=== PATIENT | female | born 1950 | race African-American/Black ===

== ENCOUNTER 2019-09-27 16:31 | Emergency (ER) | payer MEDICARE, MEDICAID ==
[~2019-09-27] VITALS: Ht 160 cm; Wt 58.0 kg
[2019-09-27 16:47] VITALS: BP 107/78
== END 2019-09-27 19:33 | disposition left against medical advice (07) ==
LOC: ER 16:31
DX: Z53.21 Procedure and treatment not carried out due to patient leaving prior to being seen by health care provider (principal)

== ENCOUNTER 2020-07-18 18:15 | Emergency (ER) | payer MEDICARE, MEDICAID ==
[~2020-07-18] VITALS: Ht 165.1 cm; Wt 60.0 kg
[2020-07-18 18:17] VITALS: BP 121/77
[2020-07-18] MEDS ORDERED: IBUPROFEN 600MG TABLET PO STA (19:37)
[2020-07-18] MEDS ORDERED: ACETAMINOPHEN WITH CODEINE 300/30MG TABLET PO STA (19:46)
[2020-07-18] MEDS ORDERED: ACETAMINOPHEN 325MG TABLET PO STA (19:48)
== END 2020-07-18 21:27 | disposition home or self-care (01) ==
LOC: ER 18:15
DX: M25.551 Pain in right hip (principal); M79.604 Pain in right leg; J44.1 Chronic obstructive pulmonary disease with (acute) exacerbation; I10 Essential (primary) hypertension; Z88.1 Allergy status to other antibiotic agents
CPT/HCPCS: 71045; 73030; 73080; 73110; 73502; 73590; 99284

== ENCOUNTER 2020-12-12 16:08 | Emergency (ER) | payer MEDICARE, MEDICAID ==
[~2020-12-12] VITALS: Ht 157.5 cm; Wt 63.0 kg
[2020-12-12 16:46] VITALS: BP 120/95
[2020-12-12] MEDS ORDERED: MOBI7 MT (18:58)
[2020-12-12] MEDS ORDERED: ACETAMINOPHEN 325MG TABLET PO ONE (19:00)
== END 2020-12-12 19:10 | disposition home or self-care (01) ==
LOC: ER 16:51
DX: M16.11 Unilateral primary osteoarthritis, right hip (principal); I10 Essential (primary) hypertension; J44.1 Chronic obstructive pulmonary disease with (acute) exacerbation; J45.909 Unspecified asthma, uncomplicated; Z88.1 Allergy status to other antibiotic agents; Z98.890 Other specified postprocedural states; Z86.39 Personal history of other endocrine, nutritional and metabolic disease
CPT/HCPCS: 73700; 99285

== ENCOUNTER 2021-08-10 18:07 | Emergency (ER) | payer MEDICARE, MEDICAID ==
[~2021-08-10] VITALS: Ht 157.5 cm; Wt 59.0 kg
[~2021-08-10 18:07] MED LIST: MOBI7 MT
[2021-08-10 18:13] VITALS: BP 111/75
== END 2021-08-10 22:00 | disposition left against medical advice (07) ==
LOC: ER 18:07
DX: Z53.21 Procedure and treatment not carried out due to patient leaving prior to being seen by health care provider (principal)
CPT/HCPCS: 93005; 99283

== ENCOUNTER 2023-03-22 21:53 | Emergency (ER) | payer MEDICARE, MEDICAID ==
[~2023-03-22] VITALS: Ht 152.4 cm; Wt 52.1 kg
[2023-03-22 22:06] VITALS: O2SAT 99
[2023-03-23 00:37] LABS: CLARITY URINE TURBID (CLEAR); COLOR URINE ORANGE (YELLOW); KETONES URINE TRACE (NEGATIVE); LEUKOCYTE ESTERASE URINE 2+ (NEGATIVE); NITRITE URINE NEGATIVE (NEGATIVE); OCCULT BLOOD URINE 3+ (NEGATIVE); PROTEIN URINE 2+ (NEGATIVE); SPECIFIC GRAVITY URINE 1.043 (1.005-1.030)
[2023-03-23] MEDS ORDERED: CEFP200T13 MT (01:43)
[2023-03-23] MEDS ORDERED: LIDOCAINE HCL 1% 20ML VIAL (Pyxis) INJ INFIL ONE (01:45)
[2023-03-23] MEDS ORDERED: KETOROLAC 60MG/2ML VIAL IM ONE (01:45)
[2023-03-23] MEDS ORDERED: CEFTRIAXONE SODIUM 1 G/VIAL IM ONE (01:45)
[2023-03-23 02:21] VITALS: BP 156/92
[2023-03-23 02:22] VITALS: PULSE 68; RESP 16; TEMP 98.1
== END 2023-03-23 02:20 | disposition home or self-care (01) ==
LOC: ER 21:53
DX: N39.0 Urinary tract infection, site not specified (principal); I10 Essential (primary) hypertension; Z98.890 Other specified postprocedural states; Z90.49 Acquired absence of other specified parts of digestive tract; Z86.39 Personal history of other endocrine, nutritional and metabolic disease; Z88.0 Allergy status to penicillin
CPT/HCPCS: 99284; 81003; 81025; 96372; J0696; J1885; J3490

== ENCOUNTER → 2024-03-15 | Outpatient (CLI) | payer MEDICARE, MEDICAID ==
[~2024-03-15] MED LIST changes: +CEFP200T13 MT; +GADOTERATE MEGLUMINE 5 MMOL/10 ML VIAL IV ONE
== END | disposition home or self-care (01) ==
LOC: MRI 09:33
PROVIDERS: ATTEND Internal Medicine Gastroenterology
DX: K76.89 Other specified diseases of liver (principal); N28.1 Cyst of kidney, acquired
CPT/HCPCS: 74183; A9577

== ENCOUNTER → 2024-07-18 | Outpatient (CLI) | payer MEDICARE, MEDICAID ==
[~2024-07-18] MED LIST changes: -GADOTERATE MEGLUMINE 5 MMOL/10 ML VIAL IV ONE
== END | disposition home or self-care (01) ==
LOC: US 08:24
PROVIDERS: ATTEND Internal Medicine Gastroenterology
DX: K76.89 Other specified diseases of liver (principal); N28.1 Cyst of kidney, acquired
CPT/HCPCS: 76700

== ENCOUNTER → 2024-08-24 | Outpatient (CLI) | payer MEDICARE, MEDICAID ==
[2024-08-24] VITALS (13 sets, daily range): BP systolic 119–138; BP diastolic 72–92; PULSE 47–57; RESP 12–20; O2SAT 97–99
[~2024-08-24] VITALS: Ht 157.5 cm
[~2024-08-24] MED LIST changes: +FENTANYL CITRATE/PF 50MCG/ML 2ML VIAL ONE; +LIDOCAINE HCL 1% 10 MG/ML 10ML VIAL ONE; +SODIUM BICARBONATE 4% 2.4MEQ/5ML VIAL IV ONE
[2024-08-24] MEDS: FENTANYL CITRATE/PF 50MCG/ML 2ML VIAL IV ONE (09:50)
== END | disposition home or self-care (01) ==
LOC: US 08:37
PROVIDERS: ATTEND Internal Medicine Gastroenterology
DX: K76.89 Other specified diseases of liver (principal); Z79.899 Other long term (current) drug therapy; Z88.1 Allergy status to other antibiotic agents
CPT/HCPCS: 49405; 88173; 88307; J3010; J3490 ×2; 76942; 99152; 99153; G0500